=== PATIENT | male | born 1965 | race African-American/Black ===

== ENCOUNTER 2017-08-09 10:05 | Emergency (ER) | payer SELFPAY ==
[~2017-08-09] VITALS: Ht 180.3 cm; Wt 76.8 kg
[2017-08-09] MEDS ORDERED: AUGMENTIN875 MG PO (13:17)
[2017-08-09 14:26] VITALS: BP 147/88
== END 2017-08-09 14:30 | disposition home or self-care (01) ==
LOC: EME 10:05
PROC: 3E0234Z Introduction of Serum, Toxoid and Vaccine into Muscle, Percutaneous Approach (ICD-10-PCS; principal; 2017-08-09)
DX: S61.253A Open bite of left middle finger without damage to nail, initial encounter (principal); W54.0XXA Bitten by dog, initial encounter; Z23 Encounter for immunization; F17.200 Nicotine dependence, unspecified, uncomplicated
CPT/HCPCS: 73130; 99281; 99283

== ENCOUNTER 2017-08-16 09:43 | Emergency (ER) | payer SELFPAY ==
[~2017-08-16] VITALS: Ht 175.3 cm; Wt 75.9 kg
[~2017-08-16 09:43] MED LIST: AUGMENTIN875 MG PO
[2017-08-16 09:50] VITALS: BP 144/85
== END 2017-08-16 11:18 | disposition left against medical advice (07) ==
LOC: EME 09:43
DX: Z23 Encounter for immunization (principal); Z53.21 Procedure and treatment not carried out due to patient leaving prior to being seen by health care provider